=== PATIENT | female | born 1935 | race Caucasian/White ===

== ENCOUNTER 2020-01-25 06:20 | Day surgery (SDC) | payer MEDICARE, BC ==
[2020-01-24 14:33] LABS: EOSINOPHILS 4.1 % (0-7); HEMATOCRIT 41.8 % (36.0-48.0); HEMOGLOBIN 14.1 g/dL (12-16); IMMATURE GRANULOCYTES 0.1 % (0-5); LYMPHOCYTES 36.9 % (15-50); MCH 32.3 pg (26.0-34.0); MCHC 33.7 g/dL (31.0-37.0); MCV 95.7 fL (80.0-100.0); MEAN PLATELET VOLUME 9.7 fL (7.4-10.4); MONOCYTES 9.5 % (2-11); NEUTROPHILS 48.4 % (40-80); PLATELET COUNT 266 10x3/uL (130-400); RBC 4.37 10x6/uL (4.00-5.40); RDW 12.2 % (11.5-14.5); WBC 6.8 10x3/uL (4.8-10.8)
[2020-01-24 14:35] LABS: ANION GAP 7.9 mmol/L (8-16); CALCIUM 8.7 mg/dL (8.5-10.1); CARBON DIOXIDE 32.2 mmol/L (21.0-32.0); CREATININE - SERUM 0.8 mg/dL (0.6-1.3); POTASSIUM - SERUM 4.1 mmol/L (3.5-5.1)
[~2020-01-25] VITALS: Ht 162.6 cm; Wt 66.7 kg
[~2020-01-25 06:20] MED LIST: BAYER CHEWABLE81 MG PO; CALCIUM CALTRATE; COLACE100 MG; LEXAPRO5 MG PO; MAGNESIUM MALATE; MICARDIS80 MG PO; MIRALAX17 GM PO; MULTI-DAY VITAM1 TAB PO; PROTONIX40 MG PO; SYNTHROID112 MCG PO; VITAMIN D10000 UNI1
[2020-01-25 06:52] VITALS: BP 123/61; Ht 162.6 cm; Wt 66.7 kg
--- NOTE | 2020-01-27 10:18 | OP ---
PATIENT NAME: MAXIMINO ECHAVARRIA MEDICAL RECORD: [id number] :39 LOCATION:D.OPS ADMISSION DATE: SURGEON: MANNY ALEXIS MD DATE OF OPERATION: 01/25/2020 PREOPERATIVE DIAGNOSIS: Carpal tunnel syndrome of the left. POSTOPERATIVE DIAGNOSIS: Carpal tunnel syndrome of the left. PROCEDURE: Left carpal tunnel release. SURGEON: Manny Alexis MD ANESTHESIA: General. INTRAOPERATIVE COMPLICATIONS: None. SUMMARY OF PATHOLOGIC FINDINGS: The patient did indeed have very tight transverse carpal ligament of the right hand consistent with preoperative radiographs and physical examination. Unfortunately, the patient has had a very dense neuropathy of the thumb. We hope that this will improve to some extent. OPERATIVE SUMMARY IN DETAIL: After obtaining the appropriate preoperative orthopedic surgery consent as well as anesthetic consultation, evaluation and clearance, the patient was brought to the operating room and placed on the operating table in a supine position. After adequate general laryngeal mask airway was administered, tourniquet was placed in the proximal aspect of the right upper extremity. Left upper extremity was then prepped and draped in routine sterile fashion. The arm was elevated and exsanguinated, tourniquet inflated to 250 mmHg. At this point, the appropriate time out was agreed upon by all given the patient's unique identifiers. A midpalmar incision was made in line with the fourth metacarpal ray. It was gently taken down to the level of the distal aspect of the transverse carpal ligament. This was incised to reveal the median nerve under direct visualization and with the median nerve protected with a Gowen elevator. The entire transverse carpal ligament was released to the proximal wrist crease. Having completed this, the wound was copiously irrigated and closed with 4-0 Prolene in routine interrupted fashion. The area was locally infiltrated with 0.25% Marcaine plain. Sterile dressings were applied. Tourniquet was deflated. The patient was awakened and taken to the recovery room in stable condition. All final needle and sponge counts were correct. TRANSINT:[id number] Voice Confirmation ID: [id number] DOCUMENT ID: [id number] 01/26/2020 Edited, [email or web address]. MANNY LAEXIS MD at 1018 CC: [id number] DICTATION DATE: 01/26/20 0617 BROKE HANDLER: 01/26/20 0900 DEP SD 01/25/20 [facility] [address] [place] [address]
== END 2020-01-25 10:38 | disposition home or self-care (01) ==
LOC: D.OPS 06:20 → D.PAN 08:30 → D.OPS 08:50 → D.PAN 08:50 → D.OPS 09:00 → D.PAN 09:00 → D.OPS 10:38
PROVIDERS: Anesthesiology; ATTEND Orthopaedic Surgery
DX: G56.02 Carpal tunnel syndrome, left upper limb (principal); M79.602 Pain in left arm